=== PATIENT | male | born 1985 | race Caucasian/White ===

== ENCOUNTER → 2021-03-22 | Outpatient (CLI) | payer OTHER ==
[~2021-03-22] MED LIST: COVI100V IM; MULT-90 PO; RISP-11 PO; RISP-9 PO; VITA200015 PO
--- NOTE | 2021-03-22 09:39 | REP ---
INDICATION: EVAL SPLENOMEGALY. COMPARISON: None. TECHNIQUE: Real-time sonographic evaluation of left upper quadrant performed. FINDINGS: The spleen is enlarged measuring 15.2 x 5.3 x 14.2 cm, splenic index 1144. No gross intrinsic abnormality is seen, scanning is limited due to bowel gas and limited windows. The left kidney is normal in size and echotexture 12.2 x 6.6 x 6.1 cm, with no hydronephrosis or other gross abnormality. No free fluid is visualized. IMPRESSION: Splenomegaly as discussed above. <Electronically signed by Ketan Liu > 03/22/21 0935
== END ==
LOC: M RAD 09:00
PROVIDERS: ATTEND Internal Medicine Medical Oncology
DX: R16.1 Splenomegaly, not elsewhere classified (principal)